=== PATIENT | female | born 1960 | race Caucasian/White ===

== ENCOUNTER → 2024-09-25 07:54 | Outpatient (REF) | payer MEDICARE, SELFPAY | LOC: HWRAD 07:54 | PROVIDERS: ATTENDING PHYSICIAN Internal Medicine | DX: M81.0 Age-related osteoporosis without current pathological fracture (principal); Z12.31 Encounter for screening mammogram for malignant neoplasm of breast | CPT/HCPCS: 77063; 77067; 77080 ==